=== PATIENT | female | born 1960 | race Caucasian/White ===

== ENCOUNTER → 2016-08-07 | Outpatient (CLI) | payer BC ==
[~2016-08-07] MED LIST: ACYCLOVIR400 MG PO; ALBUTEROL17 GM INH; ALBUTEROL20 ml INH; ALPRAZOLAM PO; ALPRAZOLAM0.5 M1 PO; ASPIRIN PO; ASPIRIN81 M2; ASPIRIN81 MG PO; BENZONATATE200 M1 PO; BROMPHED DM PO; CALCIUM + D3 E1 EACH; CENTRUM PO; CIPRO PO; COREG3.125 MG; COREG6.25 MG PO; CRESTOR5 MG PO; EFFEXOR-XR37.5 MG; EFFEXOR75 M1 PO; ESTRATEST H.S.1 TAB PO; FISH OIL 1,0001 CAP PO; HYDROCHLOROTHIA25 MG PO; HYDROCODON-ACE1 EAC5 PO; IBUPROFEN PO; LIVALO1 MG; MICARDIS PO; MULTI VITAMIN1 EACH PO; MULTIPLE VITAMI1 T11; NEXIUM PO; NORCO 10-325 TA1 TAB; NORFLEX100 M1 PO; PERCOCET7.5 PO; PHENAZOPYRIDIN100 M1 PO; PREDNISONE50 MG PO; PRISTIQ50 MG PO; TORADOL10 MG PO; VICODIN PO; ZEGERID 40 MG C1 CAP PO; ZITHROMAX PO; ZOCOR PO
--- NOTE | ~2016-08-07 | MY11 ---
[facility] A Service [facility] RADIOLOGY TEXT RESULTS PATIENT: RIGOBERTO JAMES LOCATION: [facility] : 60 UNIT #: [id number] AGE: [address]: Fredy Barfield MD SEX: F ORDER DR: [id number] [place] [id number] MR#: [id number] #: [id number] NAME: RIGOBERTO JAMES : 1960 SEX: F STUDY DATE/TIME: 08/07/2016 10:56 UNIT: [facility] ROOM: STUDY DESCRIPTION: MY Mammogram Screening Dig Rhett Attending Physician: Fredy Barfield M.D. Referring Physician: Fredy Barfield M.D. Ordering Physician: Fredy Barfield M.D. Primary Care Physician: Fredy Barfield M.D. MEDICAL IMAGING REPORT This report is preliminary unless electronic signature is present. EXAM Bilateral digital screening mammogram with CAD DATE: 08/07/2016 HISTORY No personal family history breast cancer or current complaints. COMPARISON Bilateral screening mammogram 08/12/2013 FINDINGS CC and MLO views were obtained of each breast utilizing digital technique and reviewed with an FDA-approved CAD device. Scattered fibroglandular densities are present bilaterally, greatest in the upper outer left breast anterior third. The parenchymal pattern appears stable. No new or developing nodule, architectural distortion or cluster of microcalcification is seen. IMPRESSION BIRADS category 1. Negative screening mammogram. Routine screening mammogram is recommended in 1 year. Patients over the age of 40 are entered into a reminder system with target due date for the next mammogram. A result letter will also be sent to the patient. BIRADS: 1 - negative Dictated by... [facility] A Service [facility] RADIOLOGY TEXT RESULTS PATIENT: RIGOBERTO JAMES LOCATION: [facility] : 60 UNIT #: [id number] AGE: [address]: Fredy Barfield MD SEX: F ORDER DR: Marine Sheffield M.D. THIS IS AN ELECTRONICALLY VERIFIED REPORT Marine Sheffield M.D. at 08/10/2016 8:30 AM [facility]/didi TD: 08/07/2016 11:13 JOB #: [id number] MEDICAL IMAGING REPORT Page 1 of 1
== END | disposition home or self-care (01) ==
LOC: SMAM 10:45
DX: Z12.31 Encounter for screening mammogram for malignant neoplasm of breast (principal)
CPT/HCPCS: G0202